=== PATIENT | female | born 1975 | race Caucasian/White ===

== ENCOUNTER 2018-12-13 22:36 | Emergency (ER) | payer OTHER ==
[~2018-12-13] VITALS: Ht 165.1 cm; Wt 77.1 kg
[2018-12-13 22:52] VITALS: Ht 165.1 cm; Wt 77.1 kg
[2018-12-14 00:54] VITALS: BP 109/67
== END 2018-12-14 01:37 | disposition home or self-care (01) ==
LOC: ED 22:36
DX: J98.01 Acute bronchospasm (principal)
CPT/HCPCS: J7512

== ENCOUNTER 2019-03-12 19:22 | Emergency (ER) | payer OTHER ==
[~2019-03-12] VITALS: Ht 165.1 cm; Wt 77.1 kg
[2019-03-12 19:57] VITALS: Ht 165.1 cm; Wt 77.1 kg
[2019-03-12 22:21] VITALS: BP 141/78
== END 2019-03-12 22:21 | disposition home or self-care (01) ==
LOC: ED 19:22
DX: S82.52XA Displaced fracture of medial malleolus of left tibia, initial encounter for closed fracture (principal); Z98.890 Other specified postprocedural states; V43.02XA Car driver injured in collision with other type car in nontraffic accident, initial encounter; Y93.I9 Activity, other involving external motion; Y92.413 State road as the place of occurrence of the external cause; Y99.8 Other external cause status
CPT/HCPCS: J1885; J2270